=== PATIENT | male | born 1960 | race Two or more races ===

== ENCOUNTER → 2017-06-24 | Outpatient (REF) | payer OTHER ==
[2017-06-24 18:38] LABS: APPEARANCE, URINE HAZY (CLEAR); BACTERIA, URINE AUTO 1+ (NEGATIVE); BILIRUBIN, URINE AUTO NEGATIVE (NEGATIVE); BLOOD, URINE BLOOD 1+ (NEGATIVE); COLOR, URINE YELLOW (YELLOW); GLUCOSE, URINE (UA) AUTO NEGATIVE (NEGATIVE); KETONE, URINE AUTO NEGATIVE (NEGATIVE); LEUKOCYTE ESTERASE, URINE AUTO TRACE (NEGATIVE); MUCUS, URINE SMALL (NEGATIVE); NITRITE, URINE AUTO POSITIVE (NEGATIVE); PROTEIN, URINE AUTO NEGATIVE (NEGATIVE); RBC, URINE AUTO 4 /HPF (0-3); SPECIFIC GRAVITY URINE AUTO 1.014 (1.002-1.035); SQUAMOUS EPITHELIAL CELL UR AU 0 /HPF (0-6); UROBILINOGEN, URINE AUTO 0.2 mg/dL (0.0-2.0); WBC, URINE AUTO 7 /HPF (0-3)
== END ==
LOC: M SMT 17:04
DX: N39.0 Urinary tract infection, site not specified (principal)

== ENCOUNTER → 2017-07-06 | Outpatient (REF) | payer OTHER | LOC: M SMT 17:43 | DX: N39.0 Urinary tract infection, site not specified (principal) | CPT/HCPCS: 87086 ==

== ENCOUNTER → 2017-08-19 | Outpatient (REF) | payer OTHER | LOC: M LAB REF 12:48 | DX: N76.0 Acute vaginitis (principal) ==

== ENCOUNTER → 2017-09-28 | Outpatient (REF) | payer OTHER | LOC: M SMT 13:01 | DX: N39.0 Urinary tract infection, site not specified (principal) | CPT/HCPCS: 87086 ==

== ENCOUNTER → 2018-02-01 | Outpatient (REF) | payer OTHER ==
[2018-02-01 18:32] LABS: APPEARANCE, URINE CLEAR (CLEAR); BACTERIA, URINE AUTO NEGATIVE (NEGATIVE); BILIRUBIN, URINE AUTO NEGATIVE (NEGATIVE); BLOOD, URINE BLOOD 1+ (NEGATIVE); COLOR, URINE YELLOW (YELLOW); GLUCOSE, URINE (UA) AUTO NEGATIVE (NEGATIVE); KETONE, URINE AUTO NEGATIVE (NEGATIVE); LEUKOCYTE ESTERASE, URINE AUTO NEGATIVE (NEGATIVE); NITRITE, URINE AUTO NEGATIVE (NEGATIVE); PROTEIN, URINE AUTO NEGATIVE (NEGATIVE); RBC, URINE AUTO 3 /HPF (0-3); SPECIFIC GRAVITY URINE AUTO 1.013 (1.002-1.035); SQUAMOUS EPITHELIAL CELL UR AU 0 /HPF (0-6); UROBILINOGEN, URINE AUTO 0.2 mg/dL (0.0-2.0); WBC, URINE AUTO 1 /HPF (0-3)
== END ==
LOC: M SMT 17:10
DX: N39.0 Urinary tract infection, site not specified (principal); R31.29 Other microscopic hematuria

== ENCOUNTER → 2018-03-14 | Outpatient (REF) | payer OTHER | LOC: M SMT 13:26 | DX: N39.0 Urinary tract infection, site not specified (principal) ==

== ENCOUNTER → 2018-03-31 | Outpatient (REF) | payer OTHER | LOC: M LAB REF 16:44 | DX: N76.0 Acute vaginitis (principal) | CPT/HCPCS: 87186 ==

== ENCOUNTER → 2018-08-11 | Outpatient (REF) | payer OTHER ==
[~2018-08-11] MED LIST: ALIG4CAP PO; ENBR50IN4 SC; ESTRTAB10 PO; NITR100C2 PO
== END ==
LOC: M SFHCLERA 19:30
PROVIDERS: ATTEND Physician Assistant
DX: J02.9 Acute pharyngitis, unspecified (principal)

== ENCOUNTER → 2020-12-11 | Outpatient (REF) | payer OTHER ==
[~2020-12-11] MED LIST changes: -ENBR50IN4 SC; +ETAN50PE SC
[2020-12-11 13:31] LABS: HEPATITIS B CORE ANTIBODY IGM NEGATIVE (NEGATIVE); HEPATITIS B SURFACE ANTIGEN NEGATIVE (NEGATIVE)
== END ==
LOC: M LAB REF 11:11
PROVIDERS: ATTEND Internal Medicine
DX: L40.0 Psoriasis vulgaris (principal); Z11.59 Encounter for screening for other viral diseases

== ENCOUNTER → 2022-12-10 | Outpatient (CLI) | payer OTHER | LOC: M RAD 08:18 | PROVIDERS: ATTEND Internal Medicine Cardiovascular Disease | DX: R09.89 Other specified symptoms and signs involving the circulatory and respiratory systems (principal) ==

== ENCOUNTER → 2022-12-27 | Outpatient (CLI) | payer OTHER | LOC: M RAD 10:32 | PROVIDERS: ATTEND Internal Medicine Cardiovascular Disease | DX: Z12.2 Encounter for screening for malignant neoplasm of respiratory organs (principal); Z87.891 Personal history of nicotine dependence; J84.9 Interstitial pulmonary disease, unspecified; I70.0 Atherosclerosis of aorta; I25.10 Atherosclerotic heart disease of native coronary artery without angina pectoris ==

== ENCOUNTER → 2024-03-22 | Outpatient (CLI) | payer OTHER | LOC: M RAD 15:32 | PROVIDERS: ATTEND Physician Assistant Medical | DX: Z12.2 Encounter for screening for malignant neoplasm of respiratory organs (principal); F17.211 Nicotine dependence, cigarettes, in remission; J47.9 Bronchiectasis, uncomplicated ==

== ENCOUNTER → 2025-03-13 | Outpatient (CLI) | payer OTHER ==
[~2025-03-13] MED LIST changes: -ALIG4CAP PO; +ALIG4CAP3 PO; +ATOR40TA75 PO; +CHLO125TA PO; +ESTR625TA TOP; +GNPTAB37 PO; +OMEP10CASR PO; +RA S25CA PO; +SPIR-10 PO; +VITA1TAB61 PO; +[UNRECOGNIZED DRUG - OTHER] PO; +[UNRECOGNIZED DRUG - REMARK] PO
[2025-03-13 12:44] LABS: BASO # 0.1 10^3/uL (0.0-0.2); BASO % 0.6 % (0.0-1.0); EOS # 0.4 10^3/uL (0.0-0.5); EOS % 3.0 % (0.0-3.0); LYMPH # 1.7 10^3/uL (1.5-5.0); LYMPH % 13.2 % (24.0-44.0); MONO # 0.8 10^3/uL (0.0-0.8); MONO % 6.3 % (2.0-8.0); NEUTROPHILS # 10.1 10^3/uL (1.5-8.5); NEUTROPHILS % 76.5 % (36.0-66.0); PLATELET COUNT, AUTOMATED 321 10^3/uL (150-450)
[2025-03-13 12:47] LABS: ALT/SGPT 31.0 U/L (7.0-40); AST/SGOT 21.0 U/L (<34); CALCIUM LEVEL 8.9 MG/DL (8.3-10.6); CARBON DIOXIDE LEVEL 27.0 MMOL/L (20-31); CHLORIDE LEVEL 102.0 MMOL/L (98-107); CREATININE FOR GFR 0.76 MG/DL (0.55-1.30); GLOMERULAR FILTRATION RATE 88.5 (>45); POTASSIUM SERUM 3.6 MMOL/L (3.5-5.1); SODIUM LEVEL 137.0 MMOL/L (136-145)
== END ==
LOC: M WUC 09:33
PROVIDERS: ATTEND Internal Medicine Gastroenterology
DX: R10.30 Lower abdominal pain, unspecified (principal)

== ENCOUNTER → 2025-03-18 | Outpatient (CLI) | payer OTHER ==
[2025-03-18 12:56] LABS: ALT/SGPT 22 U/L (7.0-40); AST/SGOT 19 U/L (<34); CALCIUM LEVEL 9.3 MG/DL (8.3-10.6); CARBON DIOXIDE LEVEL 28 MMOL/L (20-31); CHLORIDE LEVEL 97 MMOL/L (98-107); CREATININE FOR GFR 0.92 MG/DL (0.55-1.30); GLOMERULAR FILTRATION RATE 70.4 (>45); POTASSIUM SERUM 3.9 MMOL/L (3.5-5.1); SODIUM LEVEL 137 MMOL/L (136-145)
[2025-03-18 13:02] LABS: BASO # 0.1 10^3/uL (0.0-0.2); BASO % 0.6 % (0.0-1.0); EOS # 0.4 10^3/uL (0.0-0.5); EOS % 2.5 % (0.0-3.0); LYMPH # 1.9 10^3/uL (1.5-5.0); LYMPH % 10.8 % (24.0-44.0); MONO # 1.2 10^3/uL (0.0-0.8); MONO % 7.0 % (2.0-8.0); NEUTROPHILS # 13.6 10^3/uL (1.5-8.5); NEUTROPHILS % 78.6 % (36.0-66.0); PLATELET COUNT, AUTOMATED 360 10^3/uL (150-450)
[2025-03-18 13:15] LABS: CA19-9 TUMOR MARKER,CARBOHYDRA < 1.2 U/ML (<35.0)
== END ==
LOC: M WUC 09:45
PROVIDERS: ATTEND Internal Medicine Gastroenterology
DX: K85.00 Idiopathic acute pancreatitis without necrosis or infection (principal)

== ENCOUNTER → 2025-03-18 | Outpatient (CLI) | payer OTHER ==
[~2025-03-18] MED LIST changes: +ISOVUE-370 76% 100 ML VIAL As Ordered ONE
== END ==
LOC: M RAD 07:52
PROVIDERS: ATTEND Internal Medicine Gastroenterology
DX: R10.30 Lower abdominal pain, unspecified (principal); Z90.79 Acquired absence of other genital organ(s)
CPT/HCPCS: 74177; Q9967

== ENCOUNTER → 2025-04-01 | Outpatient (CLI) | payer OTHER ==
[~2025-04-01] MED LIST changes: -ISOVUE-370 76% 100 ML VIAL As Ordered ONE
[2025-04-01 12:18] LABS: BASO # 0.1 10^3/uL (0.0-0.2); BASO % 0.4 % (0.0-1.0); EOS # 0.3 10^3/uL (0.0-0.5); EOS % 1.7 % (0.0-3.0); LYMPH # 1.4 10^3/uL (1.5-5.0); LYMPH % 7.4 % (24.0-44.0); MONO # 1.5 10^3/uL (0.0-0.8); MONO % 7.9 % (2.0-8.0); NEUTROPHILS # 15.1 10^3/uL (1.5-8.5); NEUTROPHILS % 81.7 % (36.0-66.0); PLATELET COUNT, AUTOMATED 378 10^3/uL (150-450)
[2025-04-01 12:24] LABS: ALT/SGPT 39 U/L (7.0-40); AST/SGOT 43 U/L (<34); CALCIUM LEVEL 8.9 MG/DL (8.3-10.6); CARBON DIOXIDE LEVEL 26 MMOL/L (20-31); CHLORIDE LEVEL 101 MMOL/L (98-107); CREATININE FOR GFR 0.72 MG/DL (0.55-1.30); GLOMERULAR FILTRATION RATE > 90.0 (>45); POTASSIUM SERUM 4.0 MMOL/L (3.5-5.1); SODIUM LEVEL 139 MMOL/L (136-145)
[2025-04-01 12:32] LABS: INR 1.23
[2025-04-01 12:44] LABS: CA 125 39.0 U/ML (<35)
== END ==
LOC: M WUC 09:56
PROVIDERS: ATTEND Internal Medicine Gastroenterology
DX: R10.13 Epigastric pain (principal)

== ENCOUNTER 2025-05-12 01:24 | Inpatient (IN) | payer OTHER ==
[~2025-05-12] VITALS: Ht 162.6 cm; Wt 59.9 kg
[~2025-05-12 01:24] MED LIST changes: +COLA100C5 PO; +ELIQ5TAB PO; +HYDR-3364 PO; +ONDA-83 PO; +OXYC-517; +PROC5TAB81; +SENN8.6T58 PO
[2025-05-12 01:58] LABS: PLATELET COUNT, AUTOMATED 283 10^3/uL (150-450)
[2025-05-12 02:17] LABS: BASOPHILS 1 % (0-1); LYMPHOCYTES 73 % (16-44); MONOCYTES 18 % (0-5); NEUTROPHILS 7 % (28-66)
[2025-05-12 02:18] LABS: PLATELET ESTIMATE NORMAL (NORMAL)
[2025-05-12 02:21] LABS: ALT/SGPT 38 U/L (7.0-40); AST/SGOT 29 U/L (<34); CALCIUM LEVEL 9.0 MG/DL (8.3-10.6); CARBON DIOXIDE LEVEL 22 MMOL/L (20-31); CHLORIDE LEVEL 95 MMOL/L (98-107); CK-MB VALUE MASS < 1.0 NG/ML (<3.6); CPK CREATINE PHOSPHOKINASE 24 U/L (34-145); CREATININE FOR GFR 0.69 MG/DL (0.55-1.30); GLOMERULAR FILTRATION RATE > 90.0 (>45); POTASSIUM SERUM 3.9 MMOL/L (3.5-5.1); SODIUM LEVEL 134 MMOL/L (136-145)
[2025-05-12] MEDS: NS (Normal Saline) 0.9% 1,660 ML in IV 1 EA IV ONE (02:22)
[2025-05-12] MEDS: ONDANSETRON 4MG/2ML VIAL IV ONE (02:23)
[2025-05-12] MEDS: HYDROMORPHONE HCL 0.5 MG/0.5 ML SYRINGE IV PRN (02:23)
[2025-05-12] MEDS: PIPERACILLIN/TAZOBACTAM SOD 4.5 GM in DEXTROSE 5% (D5W) ADV/MINI-BAG 50 ML IV ONE (02:23)
[2025-05-12] MEDS: ACETAMINOPHEN *IV* 1,000 MG in IV 1 EA IV ONE (02:23)
[2025-05-12] MEDS ORDERED: ISOVUE-370 76% 100 ML VIAL As Ordered ONE (02:30)
[2025-05-12 02:45] LABS: INR 1.4
[2025-05-12 05:30] LABS: CK-MB VALUE MASS < 1.0 NG/ML (<3.6)
[2025-05-12 05:31] LABS: CPK CREATINE PHOSPHOKINASE 16 U/L (34-145)
[2025-05-12 05:50] LABS: KETONE, URINE AUTO RFX TRACE mg/dL (NEGATIVE); LEUKOCYTE ESTERASE UR AUTO RFX NEGATIVE (NEGATIVE); NITRITE, URINE AUTO RFX NEGATIVE (NEGATIVE); RBC, URINE AUTO RFX 15 /HPF (0-3); SQUAM EPITHELIAL CELL UR AURFX 5 /HPF (0-6); WBC, URINE AUTO RFX 3 /HPF (0-3)
[2025-05-12] MEDS ORDERED: OXYC-1 PO (06:40)
[2025-05-12] MEDS ORDERED: HOME MED LIST COMPLETE! XX SCH (06:40)
[2025-05-12] MEDS ORDERED: HEPARIN SOD 5000 UNITS/ML 1 ML VIAL/SYRINGE IV PRN (06:50)
[2025-05-12] MEDS ORDERED: ACETAMINOPHEN *IV* 1,000 MG in IV 1 EA IV PRN (07:00)
[2025-05-12 07:48] LABS: INR 1.45
[2025-05-12] MEDS ORDERED: HEPARIN SOD 5000 UNITS/ML 1 ML VIAL/SYRINGE SC SCH (09:00)
[2025-05-12] MEDS: ONDANSETRON 4MG/2ML VIAL IV PRN (09:39)
[2025-05-12] MEDS ORDERED: GLUCOSE 4 GM CHEW PO PRN (09:40)
[2025-05-12] MEDS: NS (Normal Saline) 0.9% 1,000 ML IV SCH (09:40)
[2025-05-12] MEDS ORDERED: GLUCAGON INJ 1 MG VIAL SC PRN (09:40)
[2025-05-12] MEDS: ACETAMINOPHEN *IV* 1,000 MG in IV 1 EA IV PRN (09:40)
[2025-05-12] MEDS: NS (Normal Saline) 0.9% 500 ML in IV 1 EA IV STA (09:40)
[2025-05-12] MEDS ORDERED: DEXTROSE 50% 50 ML SYRINGE IV PRN (09:40)
[2025-05-12] MEDS: HEPARIN DRIP 25,000 UNITS in IV 1 EA IV SCH (09:41)
[2025-05-12] MEDS: PIPERACILLIN/TAZOBACTAM SOD 4.5 GM in DEXTROSE 5% (D5W) ADV/MINI-BAG 50 ML IV SCH (10:00)
[2025-05-12] MEDS: KETOROLAC 30 MG/ML 1 ML VIAL IV ONE (12:05)
[2025-05-12 13:20] VITALS: BP 126/60; TEMP 98.8; O2SAT 98
[2025-05-12 16:00] VITALS: BP 115/56; TEMP 99; O2SAT 97
[2025-05-12] MEDS: KETOROLAC 30 MG/ML 1 ML VIAL IV PRN (19:35)
[2025-05-12 20:00] VITALS: BP 126/58; TEMP 98; O2SAT 99
[2025-05-12] MEDS: MORPHINE 2 MG/ML 1 ML VIAL IV PRN (22:54)
[2025-05-13] VITALS: BP 118/56; TEMP 98.9; O2SAT 96
[2025-05-13 04:00] VITALS: BP 130/63; TEMP 98.9; O2SAT 96
[2025-05-13 05:52] LABS: BASO # 0.0 10^3/uL (0.0-0.2); BASO % 0.4 % (0.0-1.0); EOS # 0.4 10^3/uL (0.0-0.5); EOS % 4.3 % (0.0-3.0); LYMPH # 1.2 10^3/uL (1.5-5.0); LYMPH % 13.1 % (24.0-44.0); MONO # 2.5 10^3/uL (0.0-0.8); MONO % 26.5 % (2.0-8.0); NEUTROPHILS # 4.0 10^3/uL (1.5-8.5); NEUTROPHILS % 43.4 % (36.0-66.0); PLATELET COUNT, AUTOMATED 190 10^3/uL (150-450)
[2025-05-13 06:12] LABS: ALT/SGPT 21 U/L (7.0-40); AST/SGOT 19 U/L (<34); CALCIUM LEVEL 7.5 MG/DL (8.3-10.6); CARBON DIOXIDE LEVEL 22 MMOL/L (20-31); CHLORIDE LEVEL 103 MMOL/L (98-107); CREATININE FOR GFR 0.56 MG/DL (0.55-1.30); GLOMERULAR FILTRATION RATE > 90.0 (>45); MAGNESIUM LEVEL 1.4 MG/DL (1.8-2.4); POTASSIUM SERUM 3.1 MMOL/L (3.5-5.1); SODIUM LEVEL 139 MMOL/L (136-145)
[2025-05-13] MEDS: MAG SULF 1GM/100ML (MAG RUN) 1 GM in IV 1 EA IV ONE (07:05)
[2025-05-13] MEDS: D5W/0.9% SODIUM CHLORIDE 1,000 ML IV SCH (07:32)
[2025-05-13 08:00] VITALS: BP 115/56; TEMP 98.3; O2SAT 96
[2025-05-13] MEDS ORDERED: KCL 10MEQ/100ML SWI (KRUN) 10 MEQ in IV 1 EA IV SCH ×2 (08:00→09:00)
[2025-05-13] MEDS: MAG SULF 1GM/100ML (MAG RUN) 1 GM in IV 1 EA IV SCH (08:51)
[2025-05-13] MEDS: KCL 10MEQ/100ML SWI (KRUN) 10 MEQ in IV 1 EA IV SCH ×3 (09:58→22:14)
[2025-05-13 11:55] VITALS: BP 124/61; TEMP 98.2; O2SAT 96
[2025-05-13 16:04] LABS: CALCIUM LEVEL 7.1 MG/DL (8.3-10.6); CARBON DIOXIDE LEVEL 23 MMOL/L (20-31); CHLORIDE LEVEL 105 MMOL/L (98-107); CREATININE FOR GFR 0.48 MG/DL (0.55-1.30); GLOMERULAR FILTRATION RATE > 90.0 (>45); POTASSIUM SERUM 3.5 MMOL/L (3.5-5.1); SODIUM LEVEL 137 MMOL/L (136-145)
[2025-05-13 16:47] LABS: MAGNESIUM LEVEL 2.1 MG/DL (1.8-2.4)
[2025-05-13 17:09] VITALS: BP 139/63; TEMP 97.9; O2SAT 97
[2025-05-13 19:35] LABS: CALCIUM LEVEL 7.2 MG/DL (8.3-10.6); CARBON DIOXIDE LEVEL 22 MMOL/L (20-31); CHLORIDE LEVEL 105 MMOL/L (98-107); CREATININE FOR GFR 0.48 MG/DL (0.55-1.30); GLOMERULAR FILTRATION RATE > 90.0 (>45); MAGNESIUM LEVEL 1.9 MG/DL (1.8-2.4); POTASSIUM SERUM 3.2 MMOL/L (3.5-5.1); SODIUM LEVEL 139 MMOL/L (136-145)
[2025-05-13 21:32] VITALS: BP 133/61; TEMP 97.4; O2SAT 97
[2025-05-13] MEDS: traZODone 50 MG TAB PO PRN (23:40)
[2025-05-13] MEDS: MORPHINE 4 MG/ML 1 ML VIAL IV PRN (23:41)
[2025-05-14 03:56] VITALS: BP 142/64; TEMP 97.7; O2SAT 96
[2025-05-14 06:52] LABS: PLATELET COUNT, AUTOMATED 243 10^3/uL (150-450)
[2025-05-14 07:20] LABS: ALT/SGPT 18 U/L (7.0-40); AST/SGOT 22 U/L (<34); CALCIUM LEVEL 7.0 MG/DL (8.3-10.6); CARBON DIOXIDE LEVEL 25 MMOL/L (20-31); CHLORIDE LEVEL 104 MMOL/L (98-107); CREATININE FOR GFR 0.46 MG/DL (0.55-1.30); GLOMERULAR FILTRATION RATE > 90.0 (>45); MAGNESIUM LEVEL 1.7 MG/DL (1.8-2.4); POTASSIUM SERUM 3.2 MMOL/L (3.5-5.1); SODIUM LEVEL 139 MMOL/L (136-145)
[2025-05-14 07:57] LABS: ATYPICAL LYMPH 1 % (0-5); EOSINOPHILS 5 % (0-3); LYMPHOCYTES 11 % (16-44); METAMYELOCYTES 3 % (0-0); MONOCYTES 12 % (0-5); MYELOCYTES 3 % (0-0); NEUTROPHILS 60 % (28-66)
[2025-05-14 08:00] LABS: PLATELET ESTIMATE NORMAL (NORMAL)
[2025-05-14] MEDS: KCL 10MEQ/100ML SWI (KRUN) 10 MEQ in IV 1 EA IV SCH (08:32)
[2025-05-14] MEDS: LIDOCAINE 5% PATCH TD SCH (10:23)
[2025-05-14] MEDS: ANALGESIC BALM CRM 3 OZ TOP SCH (11:45)
[2025-05-14 12:00] VITALS: BP 152/67; TEMP 98.1; O2SAT 97
[2025-05-14] MEDS: MAG SULF 1GM/100ML (MAG RUN) 1 GM in IV 1 EA IV SCH ×2 (15:31→17:00)
[2025-05-14] MEDS ORDERED: PIPERACILLIN/TAZOBACTAM SOD 3.375 GM in DEXTROSE 5% (D5W) ADV/MINI-BAG 50 ML IV SCH (16:00)
[2025-05-14 20:06] VITALS: BP 158/70; TEMP 97.3; O2SAT 97
[2025-05-14] MEDS: POTASSIUM CHLORIDE 10MEQ SR TABLET PO SCH (20:13)
[2025-05-14] MEDS: APIXABAN 5 MG TAB PO SCH (20:14)
[2025-05-14] MEDS: PANTOPRAZOLE 40MG TAB PO SCH (20:14)
[2025-05-14] MEDS: AUGMENTIN 875 MG TAB PO SCH (20:14)
[2025-05-14] MEDS: CALCIUM CARBONATE 500 MG CHEW U/D PO PRN (20:14)
[2025-05-15 04:02] VITALS: BP 143/67; TEMP 97.4; O2SAT 95
[2025-05-15 06:24] LABS: ALT/SGPT 30 U/L (7.0-40); AST/SGOT 50 U/L (<34); CALCIUM LEVEL 7.4 MG/DL (8.3-10.6); CARBON DIOXIDE LEVEL 28 MMOL/L (20-31); CHLORIDE LEVEL 103 MMOL/L (98-107); CREATININE FOR GFR 0.41 MG/DL (0.55-1.30); GLOMERULAR FILTRATION RATE > 90.0 (>45); MAGNESIUM LEVEL 1.9 MG/DL (1.8-2.4); POTASSIUM SERUM 3.2 MMOL/L (3.5-5.1); SODIUM LEVEL 140 MMOL/L (136-145)
[2025-05-15] MEDS: KCL 10MEQ/100ML SWI (KRUN) 10 MEQ in IV 1 EA IV SCH (08:27)
[2025-05-15] MEDS: POTASSIUM CHLORIDE 10MEQ SR TABLET PO SCH (08:27)
[2025-05-15] MEDS ORDERED: METH85CR11 TOP (11:52)
[2025-05-15] MEDS ORDERED: AMOX875T2 PO (11:52)
[2025-05-15] MEDS ORDERED: ELIQ5TAB PO (11:52)
[2025-05-15] MEDS ORDERED: LIDO5TD TD (11:52)
[2025-05-15 12:00] VITALS: BP 143/65; TEMP 98; O2SAT 96
[2025-05-15 12:41] LABS: CALCIUM LEVEL 7.7 MG/DL (8.3-10.6); CARBON DIOXIDE LEVEL 28 MMOL/L (20-31); CHLORIDE LEVEL 101 MMOL/L (98-107); CREATININE FOR GFR 0.40 MG/DL (0.55-1.30); GLOMERULAR FILTRATION RATE > 90.0 (>45); POTASSIUM SERUM 4.1 MMOL/L (3.5-5.1); SODIUM LEVEL 138 MMOL/L (136-145)
== END 2025-05-15 13:55 | disposition home or self-care (01) | DRG 247 ==
LOC: M ED 01:24 → M ED INP 06:01 → M ICU 13:09 → M MSPAV 05-13 17:04
PROVIDERS: ADMIT Internal Medicine; ATTEND Student in an Organized Health Care Education/Training Program
DX: K56.609 Unspecified intestinal obstruction, unspecified as to partial versus complete obstruction (principal); I10 Essential (primary) hypertension; E78.5 Hyperlipidemia, unspecified; E87.6 Hypokalemia; C25.2 Malignant neoplasm of tail of pancreas; D72.823 Leukemoid reaction; Z92.21 Personal history of antineoplastic chemotherapy; C79.72 Secondary malignant neoplasm of left adrenal gland; Z79.899 Other long term (current) drug therapy; Z88.5 Allergy status to narcotic agent; C78.7 Secondary malignant neoplasm of liver and intrahepatic bile duct; C78.89 Secondary malignant neoplasm of other digestive organs

== ENCOUNTER → 2025-05-21 | Outpatient (CLI) | payer OTHER ==
[~2025-05-21] VITALS: Ht 162.6 cm; Wt 56.0 kg
[~2025-05-21] MED LIST changes: +AMOX875T2 PO; +LIDO30CR18 TOP; +LIDO5TD TD; +MAGN400T2 PO; +METH85CR11 TOP; +OXYC-1 PO; +OXYC30TA PO; +OXYC60TA8 PO; +POTA-151 PO; +PROC10TA5 PO
[2025-05-21 16:10] VITALS: BP 114/60; O2SAT 100
== END ==
LOC: M PAL 15:41
PROVIDERS: ATTEND Physician Assistant
DX: Z51.5 Encounter for palliative care (principal); C25.9 Malignant neoplasm of pancreas, unspecified; C78.7 Secondary malignant neoplasm of liver and intrahepatic bile duct; Z79.891 Long term (current) use of opiate analgesic; E78.5 Hyperlipidemia, unspecified; I10 Essential (primary) hypertension; Z88.5 Allergy status to narcotic agent; Z79.899 Other long term (current) drug therapy; Z79.83 Long term (current) use of bisphosphonates

== ENCOUNTER 2025-05-24 14:26 | Emergency (ER) | payer OTHER ==
[~2025-05-24] VITALS: Ht 162.6 cm; Wt 57.3 kg
[~2025-05-24 14:26] MED LIST changes: -MAGN400T2 PO; -OXYC30TA PO; -OXYC60TA8 PO; -POTA-151 PO; -PROC10TA5 PO
[2025-05-24 14:44] VITALS: TEMP 96.6
[2025-05-24] MEDS: oxyCODONE 15MG CR TAB PO ONE (17:19)
[2025-05-24 17:23] LABS: BASO # 0.1 10^3/uL (0.0-0.2); BASO % 0.5 % (0.0-1.0); EOS # 0.1 10^3/uL (0.0-0.5); EOS % 0.6 % (0.0-3.0); LYMPH # 1.9 10^3/uL (1.5-5.0); LYMPH % 9.5 % (24.0-44.0); MONO # 1.5 10^3/uL (0.0-0.8); MONO % 7.2 % (2.0-8.0); NEUTROPHILS # 16.5 10^3/uL (1.5-8.5); NEUTROPHILS % 81.5 % (36.0-66.0); PLATELET COUNT, AUTOMATED 394 10^3/uL (150-450)
[2025-05-24] MEDS: ONDANSETRON 4MG/2ML VIAL IV ONE (17:32)
[2025-05-24] MEDS: HYDROMORPHONE HCL 0.5 MG/0.5 ML SYRINGE IV ONE ×2 (17:33→18:05)
[2025-05-24 17:53] LABS: C REACTIVE PROTEIN QUANTITATIV 7.14 MG/DL (<1.0)
[2025-05-24 17:54] LABS: ALT/SGPT 34 U/L (7.0-40); AST/SGOT 59 U/L (<34); CALCIUM LEVEL 8.4 MG/DL (8.3-10.6); CARBON DIOXIDE LEVEL 28 MMOL/L (20-31); CHLORIDE LEVEL 94 MMOL/L (98-107); CREATININE FOR GFR 0.56 MG/DL (0.55-1.30); GLOMERULAR FILTRATION RATE > 90.0 (>45); POTASSIUM SERUM 4.6 MMOL/L (3.5-5.1); SODIUM LEVEL 129 MMOL/L (136-145)
[2025-05-24 20:30] VITALS: BP 113/53
[2025-05-24 20:56] VITALS: O2SAT 95
== END 2025-05-24 21:14 | disposition home or self-care (01) ==
LOC: M ED 14:26
DX: M21.371 Foot drop, right foot (principal); M51.362 Other intervertebral disc degeneration, lumbar region with discogenic back pain and lower extremity pain; C25.9 Malignant neoplasm of pancreas, unspecified; E78.5 Hyperlipidemia, unspecified; I10 Essential (primary) hypertension; F10.10 Alcohol abuse, uncomplicated; Z87.891 Personal history of nicotine dependence; Z88.5 Allergy status to narcotic agent; Z79.01 Long term (current) use of anticoagulants; Z79.899 Other long term (current) drug therapy; Z79.02 Long term (current) use of antithrombotics/antiplatelets
CPT/HCPCS: 72148; 80053; 85025; 85652; 86140; 93005; 96374; 96375; 96376; 99285; J1171; J2405

== ENCOUNTER → 2025-05-29 | Outpatient (CLI) | payer OTHER ==
[~2025-05-29] VITALS: Ht 162.6 cm; Wt 57.2 kg
[~2025-05-29] MED LIST changes: +OXYC30TA PO; +OXYC60TA8 PO; +PROC10TA5 PO
[2025-05-29 13:29] VITALS: BP 110/60; O2SAT 96
== END ==
LOC: M PAL 12:48
PROVIDERS: ATTEND Physician Assistant
DX: Z51.5 Encounter for palliative care (principal); C25.9 Malignant neoplasm of pancreas, unspecified; C78.7 Secondary malignant neoplasm of liver and intrahepatic bile duct; Z79.891 Long term (current) use of opiate analgesic; Z88.5 Allergy status to narcotic agent; Z79.899 Other long term (current) drug therapy; Z79.02 Long term (current) use of antithrombotics/antiplatelets; Z79.83 Long term (current) use of bisphosphonates

== ENCOUNTER → 2025-05-30 | Outpatient (POV) | payer OTHER ==
[~2025-05-30] MED LIST changes: +MAGN400T2 PO; +POTA-151 PO
== END ==
LOC: M IRPOV 10:30
PROVIDERS: ATTEND Registered Nurse School
DX: C25.9 Malignant neoplasm of pancreas, unspecified (principal)